=== PATIENT | male | born 1935 | race Caucasian/White ===

== ENCOUNTER 2017-08-19 01:49 | Inpatient (IN) | payer MEDICARE, OTHER ==
[~2017-08-19] VITALS: Ht 190.5 cm; Wt 85.1 kg
[2017-08-19 02:02] VITALS: BP 142/74; PULSE 54; RESP 18; TEMP 98.2; O2SAT 98
--- NOTE | 2017-08-19 02:07 | PD ---
HPI Chief Complaint: Psychiatric Symptoms Time Seen by Provider: 01:58 Travel History International Travel<30 days: No Contact w/Intl Traveler<30days: No Traveled to known affect area: No History of Present Illness HPI 81-year-old white male with a history of Alzheimer's and bladder cancer presents to emergency department under Kahn act by PD. Patient became increasingly agitated and aggressive at home causing his to call PD. The patient is pleasantly confused and cooperative here in the ER. PFSH Past Medical History Narrative Medical Alzheimer's and bladder cancer, hypertension, diabetes Tetanus Vaccination: Unknown ?: Unknown Past Surgical History Surgical History: Unable to Obtain Social History Alcohol Use: No Tobacco Use: No Substance Use: No Allergies-Medications (Allergen,Severity, Reaction): Coded Allergies: No Allergy Information Available (Unverified , 08/19/17) Pt hx of alzheimers Reported Meds & Prescriptions Reported Meds & Active Scripts Active Active Prescriptions or Reported Medications Unobtainable Review of Systems ROS Limitations: Poor Historian Physical Exam Narrative GENERAL: Well-nourished, well-developed patient. The patient is pleasantly confused. He does not know the reason for his evaluation today. He is alert to his person but no place, time or situation. SKIN: Warm and dry. HEAD: Normocephalic and atraumatic. EYES: No scleral icterus. No injection or drainage. ENT: No nasal drainage noted. Mucous membranes pink. Airway patent. NECK: Supple, trachea midline. Moves head freely without obvious discomfort. CARDIOVASCULAR: Regular rate and rhythm without murmurs, gallops, or rubs. RESPIRATORY: Breath sounds equal bilaterally. No accessory muscle use. GASTROINTESTINAL: Abdomen soft, non-tender, nondistended. The patient is wearing a adult depends EXTREMITIES: No cyanosis or edema. BACK: Nontender without obvious deformity. No CVA tenderness. NEURO: Patient is alert and oriented to person only. no sensorimotor deficits. Nonfocal. Normal speech. PSYCH: Pleasantly confused Data Data Last Documented VS Vital Signs Date Time Temp Pulse Resp B/P (MAP) Pulse Ox O2 Delivery O2 Flow Rate FiO2 08/19/17 02:02 98.2 54 18 142/74 (96) 98 Orders Orders Complete Blood Count With Diff (08/19/17 02:04) Comprehensive Metabolic Panel (08/19/17 02:04) Thyroid Stimulating Hormone (08/19/17 02:04) Psych Screen (08/19/17 02:04) Lorazepam Inj (Ativan Inj) (08/19/17 02:15) Drug Screen, Random Urine (08/19/17 02:04) Alcohol (Ethanol) (08/19/17 02:04) Ua Includes Microscopic (08/19/17 02:06) Labs Laboratory Tests Test 08/19/17 02:15 White Blood Count 8.6 TH/MM3 Red Blood Count 4.61 MIL/MM3 Hemoglobin 13.9 GM/DL Hematocrit 40.5 % Mean Corpuscular Volume 87.9 FL Mean Corpuscular Hemoglobin 30.1 PG Mean Corpuscular Hemoglobin Concent 34.3 % Red Cell Distribution Width 13.1 % Platelet Count 229 TH/MM3 Mean Platelet Volume 9.0 FL Neutrophils (%) (Auto) 57.5 % Lymphocytes (%) (Auto) 27.3 % Monocytes (%) (Auto) 11.5 % Eosinophils (%) (Auto) 3.0 % Basophils (%) (Auto) 0.7 % Neutrophils # (Auto) 4.9 TH/MM3 Lymphocytes # (Auto) 2.3 TH/MM3 Monocytes # (Auto) 1.0 TH/MM3 Eosinophils # (Auto) 0.3 TH/MM3 Basophils # (Auto) 0.1 TH/MM3 CBC Comment DIFF FINAL Differential Comment Blood Urea Nitrogen 27 MG/DL Creatinine 0.93 MG/DL Random Glucose 112 MG/DL Total Protein 6.5 GM/DL Albumin 3.5 GM/DL Calcium Level 8.5 MG/DL Alkaline Phosphatase 53 U/L Aspartate Amino Transf (AST/SGOT) 35 U/L Alanine Aminotransferase (ALT/SGPT) 61 U/L Total Bilirubin 0.4 MG/DL Sodium Level 138 MEQ/L Potassium Level 4.3 MEQ/L Chloride Level 107 MEQ/L Carbon Dioxide Level 24.4 MEQ/L Anion Gap 7 MEQ/L Estimat Glomerular Filtration Rate 78 ML/MIN Thyroid Stimulating Hormone 3rd Gen 3.040 uIU/ML Ethyl Alcohol Level LESS THAN 3 MG/DL MDM Medical Decision Making Medical Screen Exam Complete: Yes Emergency Medical Condition: Yes Medical Record Reviewed: Yes Interpretation(s) Laboratory Tests Test 08/19/17 02:15 White Blood Count 8.6 TH/MM3 Red Blood Count 4.61 MIL/MM3 Hemoglobin 13.9 GM/DL Hematocrit 40.5 % Mean Corpuscular Volume 87.9 FL Mean Corpuscular Hemoglobin 30.1 PG Mean Corpuscular Hemoglobin Concent 34.3 % Red Cell Distribution Width 13.1 % Platelet Count 229 TH/MM3 Mean Platelet Volume 9.0 FL Neutrophils (%) (Auto) 57.5 % Lymphocytes (%) (Auto) 27.3 % Monocytes (%) (Auto) 11.5 % Eosinophils (%) (Auto) 3.0 % Basophils (%) (Auto) 0.7 % Neutrophils # (Auto) 4.9 TH/MM3 Lymphocytes # (Auto) 2.3 TH/MM3 Monocytes # (Auto) 1.0 TH/MM3 Eosinophils # (Auto) 0.3 TH/MM3 Basophils # (Auto) 0.1 TH/MM3 CBC Comment DIFF FINAL Differential Comment Blood Urea Nitrogen 27 MG/DL Creatinine 0.93 MG/DL Random Glucose 112 MG/DL Total Protein 6.5 GM/DL Albumin 3.5 GM/DL Calcium Level 8.5 MG/DL Alkaline Phosphatase 53 U/L Aspartate Amino Transf (AST/SGOT) 35 U/L Alanine Aminotransferase (ALT/SGPT) 61 U/L Total Bilirubin 0.4 MG/DL Sodium Level 138 MEQ/L Potassium Level 4.3 MEQ/L Chloride Level 107 MEQ/L Carbon Dioxide Level 24.4 MEQ/L Anion Gap 7 MEQ/L Estimat Glomerular Filtration Rate 78 ML/MIN Thyroid Stimulating Hormone 3rd Gen 3.040 uIU/ML Ethyl Alcohol Level LESS THAN 3 MG/DL Differential Diagnosis MDM: High Differential diagnoses: Schizophrenia, schizoaffective disorder, bipolar, anxiety, depression, adjustment reaction, mood disorder NOS, ODD, depressive disorder NOS, dementia, dementia with agitation, psychosis NOS, substance induced mood disorder, DMDD, Asperger syndrome, infection,electrolyte abnormality, malingering. Narrative Course Mental health screening discussed with the patient. Psychiatric screen ordered. I have spoken with the patient's . She informs me that the patient is also a diabetic. He takes Lantus 36 units at night and he takes a sliding scale of Humalog. He takes anywhere from 5-10 units with meals. Patient also has a history of hypertension. The patient's been medically cleared. The patient is given Ativan 2 mg IM. This is dementia with agitation Diagnosis Primary Impression: dementia with agitation Scripts Unable to Obtain Active Prescriptions or Reported Meds Condition: Stable Kaiden Jimenez Aug 19, 2017 02:07
[2017-08-19] MEDS ORDERED: LORazepam 2 MG/ML VIAL IM ONE (02:15)
[2017-08-19 02:38] LABS: AUTOMATED NEUTROPHIL # 4.9 TH/MM3 (1.8-7.7); BASOPHIL # 0.1 TH/MM3 (0-0.2); BASOPHIL % 0.7 % (0.0-2.0); EOSINOPHIL # 0.3 TH/MM3 (0-0.4); HEMATOCRIT 40.5 % (39.0-51.0); HEMOGLOBIN 13.9 GM/DL (13.0-17.0); LYMPH % 27.3 % (9.0-44.0); LYMPHOCYTE # 2.3 TH/MM3 (1.0-4.8); MEAN CELL VOLUME 87.9 FL (80.0-100.0); MEAN CORPUSCULAR HEMOGLOBIN 30.1 PG (27.0-34.0); MEAN CORPUSCULAR HGB CONC 34.3 % (32.0-36.0); MONO % 11.5 % (0.0-8.0); NEUT % 57.5 % (16.0-70.0); PLATELET COUNT 229 TH/MM3 (150-450); RED BLOOD COUNT 4.61 MIL/MM3 (4.50-5.90); RED CELL DISTRIBUTION WIDTH 13.1 % (11.6-17.2); WHITE BLOOD COUNT 8.6 TH/MM3 (4.0-11.0)
[2017-08-19 02:54] LABS: ALBUMIN 3.5 GM/DL (3.4-5.0); ALT (GPT) 61 U/L (12-78); AST (GOT) 35 U/L (15-37); BICARBONATE 24.4 MEQ/L (21.0-32.0); BLOOD UREA NITROGEN 27 MG/DL (7-18); CALCIUM 8.5 MG/DL (8.5-10.1); CHLORIDE 107 MEQ/L (98-107); CREATININE 0.93 MG/DL (0.60-1.30); GLOMERULAR FILTRATION RATE 78 ML/MIN (>89); GLUCOSE,RANDOM 112 MG/DL (74-106); SODIUM (NA) 138 MEQ/L (136-145)
[2017-08-19 03:04] LABS: ALKALINE PHOSPHATASE 53 U/L (45-117); TOTAL BILIRUBIN ADULT 0.4 MG/DL (0.2-1.0); TOTAL PROTEIN 6.5 GM/DL (6.4-8.2)
[2017-08-19 09:25] VITALS: BP 131/63; PULSE 40; RESP 16; TEMP 98.1; O2SAT 96
[2017-08-19 10:16] LABS: BILIRUBIN, URINE NEG (NEG); BLOOD, URINE NEG (NEG); GLUCOSE,URINE NEG (NEG); KETONE, URINE NEG (NEG); NITRITE,URINE NEG (NEG); URINE COLOR LIGHT-YELLOW (YELLW/STRAW); URINE LEUKOCYTE ESTERASE NEG (NEG)
[2017-08-19] MEDS ORDERED: DONE10TA7 PO (11:53)
[2017-08-19] MEDS ORDERED: NAME10TA PO (11:53)
[2017-08-19] MEDS ORDERED: ASPI81CH6 CHEW (11:53)
[2017-08-19] MEDS ORDERED: LISI40TA PO (11:53)
[2017-08-19] MEDS ORDERED: LOVA40TA PO (11:53)
[2017-08-19] MEDS ORDERED: ZIPR20CA13 PO (11:53)
[2017-08-19] MEDS ORDERED: GABA300C5 PO (11:53)
[2017-08-19] MEDS ORDERED: LANTUS2P SQ (11:55)
[2017-08-19] MEDS ORDERED: HUMALOG SQ (11:55)
[2017-08-19] MEDS ORDERED: ACETAMINOPHEN 325 MG TAB PO PRN (14:00)
[2017-08-19] MEDS ORDERED: ALUMINUM/MAGNESIUM/SIMETH 30 ML CUP PO PRN (14:00)
[2017-08-19] MEDS ORDERED: MAGNESIUM HYDROXIDE SUSP 30 ML CUP PO PRN (14:00)
[2017-08-19] MEDS ORDERED: DEXTROSE 50% IN WATER 50 ML VIAL(D50) IV PUSH PRN (14:45)
[2017-08-19] MEDS ORDERED: GLUCAGON 1 MG/ML VIAL OTHER PRN (14:45)
--- NOTE | 2017-08-19 14:46 | PD.CONS ---
HPI Service [facility] Hospitalists Consult Requested By Psychiatry Reason for Consult Medical management Primary Care Physician Brian Motley MD Diagnoses: History of Present Illness Mr. Zaidi is a 81-year-old male with a history of Alzheimer's dementia and bladder cancer who presents to the emergency department under Kahn act due to agitation and aggressive behavior. Hospitalist service was consulted for medical management. At the time of this interview in the emergency department, patient denies any chest pain, shortness of breath, fever or chills. He denies any changes in bowel or bladder habits. He denies any homicidal or suicidal ideations. Review of Systems ROS Limitations: Clinical Condition Except as stated in HPI: all other systems reviewed are Neg Past Family Social History Allergies: Coded Allergies: No Known Allergies (Verified Allergy, Unknown, 08/19/17) Past Medical History Also, dementia Hypertension Diabetes mellitus Bladder cancer Past Surgical History Patient denies having any prior surgeries. Reported Medications Donepezil 10 mg by mouth daily Lovastatin 40 mg by mouth daily Lisinopril 40 mg by mouth daily Aspirin 81 mg by mouth daily Gabapentin 300 mg by mouth daily Ziprasidone 20 mg daily Memantine 10 mg by mouth daily Lantus 36 units daily Lispro 2-12 units before meals daily at bedtime. Family History Patient denies any family history of Parkinson's, Alzheimer's, heart disease. Social History Patient denies using tobacco, alcohol, illicit drugs. Physical Exam Vital Signs Vital Signs Date Time Temp Pulse Resp B/P (MAP) Pulse Ox O2 Delivery O2 Flow Rate FiO2 08/19/17 09:25 98.1 40 16 131/63 (85) 96 Room Air 08/19/17 02:02 98.2 54 18 142/74 (96) 98 Physical Exam GENERAL: This is a well-nourished, well-developed patient, in no apparent distress. Flat affect. SKIN: No rashes, ecchymoses or lesions. Warm and dry. HEAD: Atraumatic. Normocephalic. No temporal or scalp tenderness. EYES: Pupils equal round and reactive. No injection or drainage. ENT: Nose without bleeding, purulent drainage or septal hematoma. Airway patent. NECK: Trachea midline. No lymphadenopathy. Supple, nontender, no meningeal signs. CARDIOVASCULAR: Regular rate, irregular rhythm without murmurs, gallops, or rubs. No JVD. RESPIRATORY: Clear to auscultation. Breath sounds equal bilaterally. No wheezes , rales, or rhonchi. GASTROINTESTINAL: Abdomen soft, non-tender, nondistended. No guarding. MUSCULOSKELETAL: Extremities without clubbing, cyanosis, or edema. NEUROLOGICAL: Awake and alert. Cranial nerves II through XII intact. No focal neurological deficits. Normal speech. Laboratory Laboratory Tests Test 08/19/17 02:15 08/19/17 09:55 White Blood Count 8.6 Red Blood Count 4.61 Hemoglobin 13.9 Hematocrit 40.5 Mean Corpuscular Volume 87.9 Mean Corpuscular Hemoglobin 30.1 Mean Corpuscular Hemoglobin Concent 34.3 Red Cell Distribution Width 13.1 Platelet Count 229 Mean Platelet Volume 9.0 Neutrophils (%) (Auto) 57.5 Lymphocytes (%) (Auto) 27.3 Monocytes (%) (Auto) 11.5 Eosinophils (%) (Auto) 3.0 Basophils (%) (Auto) 0.7 Neutrophils # (Auto) 4.9 Lymphocytes # (Auto) 2.3 Monocytes # (Auto) 1.0 Eosinophils # (Auto) 0.3 Basophils # (Auto) 0.1 CBC Comment DIFF FINAL Differential Comment Blood Urea Nitrogen 27 Creatinine 0.93 Random Glucose 112 Total Protein 6.5 Albumin 3.5 Calcium Level 8.5 Alkaline Phosphatase 53 Aspartate Amino Transf (AST/SGOT) 35 Alanine Aminotransferase (ALT/SGPT) 61 Total Bilirubin 0.4 Sodium Level 138 Potassium Level 4.3 Chloride Level 107 Carbon Dioxide Level 24.4 Anion Gap 7 Estimat Glomerular Filtration Rate 78 Thyroid Stimulating Hormone 3rd Gen 3.040 Ethyl Alcohol Level LESS THAN 3 Urine Color LIGHT-YELLOW Urine Turbidity CLEAR Urine pH 5.0 Urine Specific [place] 1.011 Urine Protein NEG Urine Glucose (UA) NEG Urine Ketones NEG Urine Occult Blood NEG Urine Nitrite NEG Urine Bilirubin NEG Urine Urobilinogen LESS THAN 2.0 Urine Leukocyte Esterase NEG Urine RBC 1 Urine WBC 2 Urine Opiates Screen NEG Urine Barbiturates Screen NEG Urine Amphetamines Screen NEG Urine Benzodiazepines Screen NEG Urine Cocaine Screen NEG Urine Cannabinoids Screen NEG Result Diagram: 08/19/1721408/19/17214 Assessment and Plan Problem List: (1) Hyperlipidemia ICD Code: E78.5 - Hyperlipidemia, unspecified (2) Diabetes mellitus ICD Code: E11.9 - Type 2 diabetes mellitus without complications (3) Hypertension ICD Code: I10 - Essential (primary) hypertension (4) Alzheimer's dementia ICD Code: G30.9 - Alzheimer's disease, unspecified; F02.80 - Dementia in other diseases classified elsewhere without behavioral disturbance Assessment and Plan Mr. Zaidi is a pleasant 81-year-old male with a history of Alzheimer' s mentioned, diabetes mellitus, hypertension who presents to the emergency department under Kahn act due to agitation and aggressive behavior. Hospitalist service was consulted for medical management. - Alzheimer's dementia - Continue donepezil 10 mg by mouth daily, Neurontin 10 mg by mouth daily - Aggressive behavior - management per psychiatry - Diabetes mellitus - Diabetic nephropathy - Continue gabapentin 300 mg by mouth daily. - We'll reduce long-acting insulin to 10 units daily at bedtime. Titrate up as needed. - Add sliding scale insulin and pre-meal insulin with aspart. Titrate as needed. - Hypertension - Hyperlipidemia - Continue lisinopril 40 mg by mouth daily. - Continue statin. - Irregular heart rhythm - will obtain EKG. No history of Atrial fibrillation. Full code. Ambulation Emperatriz Bee DO Aug 19, 2017 2:46 pm
[2017-08-19] MEDS ORDERED: NICOTINE 21 MG/24 HR PATCH T-DERMAL PRN (15:00)
[2017-08-19 16:42] VITALS: BP 138/92; PULSE 42; RESP 18; TEMP 98.6; O2SAT 98
[2017-08-19] MEDS: INSULIN ASPART SUPPLEMENTAL SCALE SQ SCH ×2 (16:43→20:20)
[2017-08-19] MEDS: INSULIN ASPART 1,000 UNITS/10 ML VIAL SQ SCH (16:43)
[2017-08-19] MEDS: INSULIN DETEMIR 100 UNITS/ML VIAL SQ SCH (21:13)
[2017-08-20 06:02] VITALS: BP 109/58; PULSE 72; RESP 18; TEMP 97.5
[2017-08-20] MEDS: INSULIN ASPART 1,000 UNITS/10 ML VIAL SQ SCH ×3 (08:00→17:00)
[2017-08-20] MEDS: INSULIN ASPART SUPPLEMENTAL SCALE SQ SCH ×4 (08:00→20:56)
[2017-08-20] MEDS: PRAVASTATIN SOD 40 MG TAB PO SCH (08:54)
[2017-08-20] MEDS: GABAPENTIN 300 MG CAP PO SCH (08:54)
[2017-08-20] MEDS: ASPIRIN 81 MG CHEW TAB CHEW SCH (08:54)
[2017-08-20] MEDS: DONEPEZIL HCL 5 MG TAB PO SCH (08:56)
[2017-08-20] MEDS: MEMANTINE HCL 10 MG TAB PO SCH (08:56)
[2017-08-20] MEDS: LISINOPRIL 20 MG TAB PO SCH (09:00)
[2017-08-20] MEDS ORDERED: INSULIN DETEMIR 100 UNITS/ML VIAL SQ SCH ×2 (09:00)
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
[2017-08-20 13:11] LABS: BICARBONATE 31.3 MEQ/L (21.0-32.0); BLOOD UREA NITROGEN 21 MG/DL (7-18); CHLORIDE 104 MEQ/L (98-107); GLOMERULAR FILTRATION RATE 72 ML/MIN (>89); GLUCOSE,RANDOM 103 MG/DL (74-106); SODIUM (NA) 141 MEQ/L (136-145)
[2017-08-20 13:12] LABS: CHOLESTEROL 119 MG/DL (120-200)
--- NOTE | 2017-08-20 13:28 | EKG ---
Date Performed: 08/19/2017 Time Performed: 15:35:45 PTAGE: 81 years EKG: Sinus rhythm WITH FREQUENT VENTRICULAR PREMATURE COMPLEXES IN A BIGEMINAL PATTERN NONSPECIFIC ST & T-WAVE ABNORMA LITY ABNORMAL RHYTHM ECG NO PREVIOUS TRACING DOCTOR: Alexis Gonzalez Interpretating Date/Time 08/20/2017 13:24:59
[2017-08-20 13:38] LABS: CHOLESTEROL/ HDL RATIO 2.24 RATIO; HDL CHOLESTEROL 53.1 MG/DL (40.0-60.0); LDL CHOLESTEROL 52 MG/DL (0-99); TRIGLYCERIDES 72 MG/DL (42-150)
--- NOTE | 2017-08-20 19:02 | MB ---
cc: DEBRA MADERA M.D. DATE OF CONSULTATION: 08/20/2017. REASON FOR CONSULTATION: HISTORY OF PRESENT ILLNESS: Michele is a very pleasant 81-year-old gentleman currently in the psychiatric unit. He presented to the emergency room on 08/19/17 due to a Kahn Act from the police department secondary to agitation and aggressiveness at the home. His called the police department. He was noted to be confused in the emergency room but cooperative. Currently he is eating dinner. He denies any chest pain, fevers, chills, cough, GI or bleeding, paroxysmal nocturnal dyspnea, orthopnea, syncope or dizziness. PAST MEDICAL HISTORY: 1. Bladder cancer. 2. Alzheimer's disease. 3. Hypertension. 4. Diabetes. ALLERGIES: NONE. SOCIAL HISTORY: Denies tobacco or alcohol use. MEDICATIONS IN THE HOSPITAL: 1. Aspirin 81 milligrams a day. 2. Gabapentin 100 daily. 3. Pravachol 40 milligrams daily. 4. Lisinopril 40 milligrams daily. 5. Aricept 10 milligrams daily. 6. Namenda 10 milligrams daily. 7. Insulin 10 units at bedtime. PHYSICAL EXAMINATION: VITAL SIGNS: Blood pressure 109/58, pulse 72, respiratory rate 18, temperature 97.5. GENERAL: He is alert and oriented times three and in no acute distress. NECK: The neck is supple. No jugular venous distention. No bruits. CARDIOVASCULAR EXAM: S1 and S2. No murmurs, rubs or gallops. LUNGS: Clear to auscultation bilaterally. ABDOMEN: The abdomen is soft, nontender and nondistended with positive bowel sounds. EXTREMITIES: No lower extremity edema. LABORATORY DATA: White count 8.6, hemoglobin 13.9, hematocrit 40.5, platelet count 229,000. Sodium 141, potassium 4.0, chloride 104, bicarbonate 31.3, BUN 21, creatinine 1.0. AST 35, ALT 61. TSH is 3.040. EKGS: EKG shows normal sinus rhythm at 75 beats per minute with ventricular bigeminy. There are corrected Q-T intervals 374 milliseconds. DIAGNOSES: He has the following diagnoses: 1. Ventricular bigeminy. 2. PVCs. 3. Alzheimer's disease. DISCUSSION: At this point in time, will get a 2-D echocardiogram. I will start the patient on Coreg 3.25 twice a day. Check a magnesium level. He is completely asymptomatic. Agree with aspirin and Pravachol and lisinopril. The beta-soco will have to be held due to bradycardia. Will check a 2-D echocardiogram. MD AMANDA Agudelo/JONNIE /6:22 PM /6:50 PM
[2017-08-20 20:00] VITALS: BP 120/64; PULSE 80; RESP 16; TEMP 98; O2SAT 98
[2017-08-20] MEDS: INSULIN DETEMIR 100 UNITS/ML VIAL SQ SCH (20:56)
[2017-08-21 06:08] VITALS: BP 123/58; PULSE 74; RESP 16; TEMP 98.4; O2SAT 97
[2017-08-21] MEDS: INSULIN ASPART 1,000 UNITS/10 ML VIAL SQ SCH ×3 (08:00→17:00)
[2017-08-21] MEDS: INSULIN ASPART SUPPLEMENTAL SCALE SQ SCH ×4 (08:00→20:17)
[2017-08-21] MEDS: ASPIRIN 81 MG CHEW TAB CHEW SCH (08:27)
[2017-08-21 08:42] LABS: HEMOGLOBIN A1C 7.5 % (4.3-6.0)
[2017-08-21] MEDS: DONEPEZIL HCL 5 MG TAB PO SCH (09:00)
[2017-08-21] MEDS: LISINOPRIL 20 MG TAB PO SCH (09:00)
[2017-08-21] MEDS: CHOLECALCIFEROL (VIT D3) 1000 UNIT TAB PO SCH (09:00)
[2017-08-21] MEDS: PRAVASTATIN SOD 40 MG TAB PO SCH (09:00)
[2017-08-21] MEDS: GABAPENTIN 300 MG CAP PO SCH (09:00)
[2017-08-21] MEDS: MEMANTINE HCL 10 MG TAB PO SCH (09:00)
--- NOTE | 2017-08-21 11:07 | PD.CARD.PN ---
Subjective Subjective Remarks alert in nad, assymptomatic Objective Medications Current Medications Medications (Trade) Dose Ordered Sig/Sujit Route Start Time Stop Time Status Last Admin (Aspirin Chew) 81 mg DAILY CHEW 08/20/17 09:00 08/21/17 08:27 (Neurontin) 300 mg DAILY PO 08/20/17 09:00 08/20/17 08:54 (Pravachol) 40 mg DAILY PO 08/20/17 09:00 08/20/17 08:54 (Prinivil) 40 mg DAILY PO 08/20/17 09:00 (Tylenol) 650 mg Q4H PRN PO 08/19/17 14:00 (Milk Of Magnesia Liq) 30 ml DAILY PRN PO 08/19/17 14:00 (Mag-Al Plus Susp Liq) 30 ml Q6H PRN PO 08/19/17 14:00 (Habitrol 21 Mg Patch.24 Hr) 1 patch DAILY PRN T-DERMAL 08/19/17 15:00 (D50w (Vial) Inj) 50 ml UNSCH PRN IV PUSH 08/19/17 14:45 (Glucagon Inj) 1 mg UNSCH PRN OTHER 08/19/17 14:45 (NovoLOG SUPPLEMENTAL SCALE) 1 ACHS SLIDING SCALE SQ 08/19/17 17:00 08/20/17 20:56 (NovoLOG INJ) 4 units TIDAC SQ 08/19/17 17:00 08/20/17 11:41 (Aricept) 10 mg DAILY PO 08/20/17 09:00 08/20/17 08:56 (Namenda) 10 mg DAILY PO 08/20/17 09:00 08/20/17 08:56 (Levemir Inj) 10 units HS SQ 08/19/17 21:00 08/20/17 20:56 (Vitamin D3) 2,000 units DAILY PO 08/21/17 09:00 Vital Signs / I&O Vital Signs Date Time Temp Pulse Resp B/P (MAP) Pulse Ox O2 Delivery O2 Flow Rate FiO2 08/21/17 06:08 98.4 74 16 123/58 (79) 97 08/20/17 20:00 98.0 80 16 120/64 (82) 98 I/O 08/20/17 08/20/17 08/20/17 08/21/17 08/21/17 08/21/17 06:59 14:59 22:59 06:59 14:59 22:59 Intake Total 760 ml 0 ml 360 ml Balance 760 ml 0 ml 360 ml Intake Oral 760 ml 0 ml 360 ml # Voids 1 2 1 # Bowel Movements 1 Physical Exam GENERAL: SKIN: Warm and dry. HEAD: Normocephalic. EYES: No scleral icterus. No injection or drainage. NECK: Supple, trachea midline. No JVD or lymphadenopathy. CARDIOVASCULAR: Regular rate and rhythm without murmurs, gallops, or rubs. RESPIRATORY: Breath sounds equal bilaterally. No accessory muscle use. GASTROINTESTINAL: Abdomen soft, non-tender, nondistended. MUSCULOSKELETAL: No cyanosis, or edema. BACK: Nontender without obvious deformity. No CVA tenderness. Laboratory Laboratory Tests Test 08/20/17 12:09 Blood Urea Nitrogen 21 MG/DL Creatinine 1.00 MG/DL Random Glucose 103 MG/DL Calcium Level 9.0 MG/DL Sodium Level 141 MEQ/L Potassium Level 4.0 MEQ/L Chloride Level 104 MEQ/L Carbon Dioxide Level 31.3 MEQ/L Anion Gap 6 MEQ/L Estimat Glomerular Filtration Rate 72 ML/MIN Hemoglobin A1c 7.5 % Triglycerides Level 72 MG/DL Cholesterol Level 119 MG/DL LDL Cholesterol 52 MG/DL HDL Cholesterol 53.1 MG/DL Cholesterol/HDL Ratio 2.24 RATIO Vitamin B12 Level 722 PG/ML 25-Hydroxy Vitamin D Total 20.4 ng/ML Thyroid Stimulating Hormone 3rd Gen 1.840 uIU/ML Assessment and Plan Problem List: (1) Arrhythmia ICD Codes: I49.9 - Cardiac arrhythmia, unspecified (2) DEMENTIA IN OTH DISEASES CLASSD ELSWHR W BEHAVIORAL DISTURB ICD Codes: F02.81 - DEMENTIA IN OTH DISEASES CLASSD ELSWHR W BEHAVIORAL DISTURB (3) Alzheimer's dementia ICD Codes: G30.9 - Alzheimer's disease, unspecified; F02.80 - Dementia in other diseases classified elsewhere without behavioral disturbance (4) Diabetes mellitus ICD Codes: E11.9 - Type 2 diabetes mellitus without complications Assessment and Plan 1.) Arrythmia - assymptomatic, f/u 2d echo, beta soco held due to bradycardia Alexis Gonzalez MD Aug 21, 2017 11:06
--- NOTE | 2017-08-21 11:24 | HHI.PYPN ---
Subjective Chief Complaint: . Confused demented and assaultive towards Remarks This is a request for second opinion. Admission note was reviewed and case was discussed with nursing. Patient is alert and oriented 1. He is hypoverbal, flat, could be responding to internal stimuli. Insight is quite poor. He continues to be followed by cardiology who ordered an echo. Where waiting for medical clearance to start medication Mental Status Examination Appearance: Appropriate Consciousness: Alert Orientation: Person Motor Activity: Other (somewhat shuffling) Speech: Unremarkable, Hesitant, Other (markedly disorganized) Language: Adequate Fund of Knowledge: Poor Attention and Concentration: Easily Distracted Memory: Impaired Mood: Other (restrictive) Affect: Other (decrease range of motion intensity) Thought Process & Associations: Loose associations, Disorganized Thought Content: Other (disorganized) Hallucination Type: None Delusion Type: None Suicidal Ideation: No Suicidal Plan: No Suicidal Intention: No Homicidal Ideation: No Homicidal Plan: No Homicidal Intention: No Insight: Poor Judgment: Poor Results Labs Test 08/20/17 12:09 Blood Urea Nitrogen 21 MG/DL Creatinine 1.00 MG/DL Random Glucose 103 MG/DL Calcium Level 9.0 MG/DL Sodium Level 141 MEQ/L Potassium Level 4.0 MEQ/L Chloride Level 104 MEQ/L Carbon Dioxide Level 31.3 MEQ/L Anion Gap 6 MEQ/L Estimat Glomerular Filtration Rate 72 ML/MIN Hemoglobin A1c 7.5 % Triglycerides Level 72 MG/DL Cholesterol Level 119 MG/DL LDL Cholesterol 52 MG/DL HDL Cholesterol 53.1 MG/DL Cholesterol/HDL Ratio 2.24 RATIO Vitamin B12 Level 722 PG/ML 25-Hydroxy Vitamin D Total 20.4 ng/ML Thyroid Stimulating Hormone 3rd Gen 1.840 uIU/ML Vitals/IOs Vital Signs Date Time Temp Pulse Resp B/P (MAP) Pulse Ox O2 Delivery O2 Flow Rate FiO2 08/21/17 06:08 98.4 74 16 123/58 (79) 97 08/19/17 09:25 Room Air Intake and Output 08/21/17 08/21/17 08/22/17 08:00 16:00 00:00 Intake Total 0 ml 360 ml Balance 0 ml 360 ml Assessment & Plan Problem List: (1) ALZHEIMER'S DISEASE WITH LATE ONSET ICD Codes: G30.1 - ALZHEIMER'S DISEASE WITH LATE ONSET (2) DEMENTIA IN OTH DISEASES CLASSD ELSWHR W BEHAVIORAL DISTURB ICD Codes: F02.81 - DEMENTIA IN OTH DISEASES CLASSD ELSWHR W BEHAVIORAL DISTURB Assessment & Plan I agree with the first opinion to continue petition. Criteria include acute confusion and dementia Justification for Cont. Inpt. Patient will decompensate in a less restrictive setting Request HC Surrog/Guard Advoc?: Yes Yang Baker DO Aug 21, 2017 11:24
--- NOTE | 2017-08-21 12:17 | HHI.PR ---
Subjective Remarks Patient with bigeminy. Patient seen and examined. Patient denies any cardiac complaints. States he feels well. Discussed with GRAYSON Sanches, no acute issues noted. Objective Vitals Vital Signs Date Time Temp Pulse Resp B/P (MAP) Pulse Ox O2 Delivery O2 Flow Rate FiO2 08/21/17 06:08 98.4 74 16 123/58 (79) 97 08/20/17 20:00 98.0 80 16 120/64 (82) 98 I/O 08/20/17 08/20/17 08/20/17 08/21/17 08/21/17 08/21/17 07:00 15:00 23:00 07:00 15:00 23:00 Intake Total 760 ml 0 ml 360 ml Balance 760 ml 0 ml 360 ml Intake Oral 760 ml 0 ml 360 ml # Voids 1 2 1 # Bowel Movements 1 Result Diagram: 08/19/17 0215 08/20/17 1209 Objective Remarks GENERAL: This is a well-nourished, well-developed elderly male patient , in no apparent distress. Awake and alert. Witnessed ambulating in the unit. Flat affect. SKIN: Warm and dry. (+)small wound on back of left leg, appears to be healing well. HEAD: Atraumatic. Normocephalic. EYES: Pupils equal round and reactive. No injection or drainage. ENT: Nose without bleeding, purulent drainage or septal hematoma. Airway patent. MMM. NECK: Trachea midline. CARDIOVASCULAR: Regular rate, irregular rhythm without murmurs, gallops, or rubs. No JVD. RESPIRATORY: Clear to auscultation. Breath sounds equal bilaterally. No wheezes , rales, or rhonchi. GASTROINTESTINAL: Abdomen soft, non-tender, nondistended. No guarding. MUSCULOSKELETAL: Extremities without clubbing, cyanosis, or edema. NEUROLOGICAL: Awake and alert. Able to move all extremities spontaneously. Motor and sensory function grossly intact. No focal neurological deficits. Normal speech. Medications and IVs Current Medications Medications (Trade) Dose Ordered Sig/Sujit Route Start Time Stop Time Status Last Admin (Aspirin Chew) 81 mg DAILY CHEW 08/20/17 09:00 08/21/17 08:27 (Neurontin) 300 mg DAILY PO 08/20/17 09:00 08/20/17 08:54 (Pravachol) 40 mg DAILY PO 08/20/17 09:00 08/20/17 08:54 (Prinivil) 40 mg DAILY PO 08/20/17 09:00 (Tylenol) 650 mg Q4H PRN PO 08/19/17 14:00 (Milk Of Magnesia Liq) 30 ml DAILY PRN PO 08/19/17 14:00 (Mag-Al Plus Susp Liq) 30 ml Q6H PRN PO 08/19/17 14:00 (Habitrol 21 Mg Patch.24 Hr) 1 patch DAILY PRN T-DERMAL 08/19/17 15:00 (D50w (Vial) Inj) 50 ml UNSCH PRN IV PUSH 08/19/17 14:45 (Glucagon Inj) 1 mg UNSCH PRN OTHER 08/19/17 14:45 (NovoLOG SUPPLEMENTAL SCALE) 1 ACHS SLIDING SCALE SQ 08/19/17 17:00 08/20/17 20:56 (NovoLOG INJ) 4 units TIDAC SQ 08/19/17 17:00 08/20/17 11:41 (Aricept) 10 mg DAILY PO 08/20/17 09:00 08/20/17 08:56 (Namenda) 10 mg DAILY PO 08/20/17 09:00 08/20/17 08:56 (Levemir Inj) 10 units HS SQ 08/19/17 21:00 08/20/17 20:56 (Vitamin D3) 2,000 units DAILY PO 08/21/17 09:00 A/P Problem List: (1) Hyperlipidemia ICD Code: E78.5 - Hyperlipidemia, unspecified (2) Diabetes mellitus ICD Code: E11.9 - Type 2 diabetes mellitus without complications (3) Hypertension ICD Code: I10 - Essential (primary) hypertension (4) Alzheimer's dementia ICD Code: G30.9 - Alzheimer's disease, unspecified; F02.80 - Dementia in other diseases classified elsewhere without behavioral disturbance Assessment and Plan Mr. Zaidi is a pleasant 81-year-old male with a history of Alzheimer' s mentioned, diabetes mellitus, hypertension who presents to the emergency department under Kahn act due to agitation and aggressive behavior. Hospitalist service was consulted for medical management. - Alzheimer's dementia with behavioral disturbance -Management per psychiatric team -Continue donepezil 10 mg by mouth daily, Namenda 10 mg daily - Diabetes mellitus - Diabetic nephropathy - A1c 7.5 -Continue gabapentin 300 mg by mouth daily. -Long-acting insulin reduced to 10 units daily at bedtime. Titrate up as needed. Blood sugars with good overall control at present. -Continue sliding scale insulin and pre-meal insulin with aspart. Titrate as needed. - Hypertension - Hyperlipidemia -Blood pressures running low, decreased dose of lisinopril to 20 mg daily with parameters. -Continue statin. -Continue to monitor BP and adjust treatment accordingly - Irregular heart rhythm No history of Atrial fibrillation -Bigeminy and PVCs on EKG. Cardiology consulted. -Obtain magnesium level -Cardiology following, appreciate assistance. 2D echo ordered. Consideration for beta-soco therapy but held secondary to bradycardia. - Vitamin D deficiency -Vitamin D level 20.4 -Start on p.o. vitamin D supplementation daily -Patient will need to follow-up with PCP as outpatient for repeat vitamin D level in 3 months -DVT prophylaxis -Patient is ambulatory Josey Man Aug 21, 2017 12:17
[2017-08-21 18:21] VITALS: BP 106/54; PULSE 74; RESP 16; TEMP 98; O2SAT 96
[2017-08-21] MEDS: INSULIN DETEMIR 100 UNITS/ML VIAL SQ SCH (20:17)
[2017-08-22 06:45] VITALS: BP 106/56; PULSE 66; RESP 16; TEMP 97.6; O2SAT 98
[2017-08-22] MEDS: INSULIN ASPART SUPPLEMENTAL SCALE SQ SCH ×4 (08:00→22:34)
[2017-08-22] MEDS: DONEPEZIL HCL 5 MG TAB PO SCH (09:00)
[2017-08-22] MEDS: MEMANTINE HCL 10 MG TAB PO SCH ×2 (09:00→09:24)
[2017-08-22] MEDS: INSULIN ASPART 1,000 UNITS/10 ML VIAL SQ SCH ×3 (09:23→17:03)
[2017-08-22] MEDS: ASPIRIN 81 MG CHEW TAB CHEW SCH (09:24)
[2017-08-22] MEDS: LISINOPRIL 20 MG TAB PO SCH (09:24)
[2017-08-22] MEDS: CHOLECALCIFEROL (VIT D3) 1000 UNIT TAB PO SCH (09:24)
[2017-08-22] MEDS: PRAVASTATIN SOD 40 MG TAB PO SCH (09:24)
[2017-08-22] MEDS: GABAPENTIN 300 MG CAP PO SCH (09:25)
--- NOTE | 2017-08-22 12:10 | HHI.PYPN ---
Subjective Chief Complaint: . Confused demented and assaultive towards Remarks Patient seen in his room nurse Silvino. Patient laying calmly in bed chart review, patient discussed with nurse. Patient compliant medications. Continues diffusely confused and to place time and situation. For now continue treatment Review of Systems Except as stated in HPI: all other systems reviewed are Neg Mental Status Examination Appearance: Appropriate Consciousness: Alert Orientation: Person Motor Activity: Other (somewhat shuffling) Speech: Unremarkable, Hesitant, Other (markedly disorganized) Language: Adequate Fund of Knowledge: Poor Attention and Concentration: Easily Distracted Memory: Impaired Mood: Other (restrictive) Affect: Other (decrease range of motion intensity) Thought Process & Associations: Loose associations, Disorganized Thought Content: Other (disorganized) Hallucination Type: None Delusion Type: None Suicidal Ideation: No Suicidal Plan: No Suicidal Intention: No Homicidal Ideation: No Homicidal Plan: No Homicidal Intention: No Insight: Poor Judgment: Poor Results Labs Test 08/22/17 07:00 Magnesium Level 2.2 MG/DL Vitals/IOs Vital Signs Date Time Temp Pulse Resp B/P (MAP) Pulse Ox O2 Delivery O2 Flow Rate FiO2 08/22/17 06:45 97.6 66 16 106/56 (73) 98 08/19/17 09:25 Room Air Intake and Output 08/22/17 08/22/17 08/23/17 08:00 16:00 00:00 Intake Total 240 ml Balance 240 ml Assessment & Plan Problem List: (1) ALZHEIMER'S DISEASE WITH LATE ONSET ICD Codes: G30.1 - ALZHEIMER'S DISEASE WITH LATE ONSET (2) DEMENTIA IN OTH DISEASES CLASSD ELSWHR W BEHAVIORAL DISTURB ICD Codes: F02.81 - DEMENTIA IN OTH DISEASES CLASSD ELSWHR W BEHAVIORAL DISTURB Assessment & Plan Estimated LOS: days patient continues confused and demented, though no behavior problem, compliant medications. Justification for Cont. Inpt. At this time patient will decompensate in place to the lower level of care Discharge Planning To be determined Request HC Surrog/Guard Advoc?: Yes Tino Jean-Baptiste MD Aug 22, 2017 12:10
--- NOTE | 2017-08-22 16:07 | PD.CARD.PN ---
Subjective Subjective Remarks alert in nad, assymptomatic Objective Medications Current Medications Medications (Trade) Dose Ordered Sig/Sujit Route Start Time Stop Time Status Last Admin (Aspirin Chew) 81 mg DAILY CHEW 08/20/17 09:00 08/22/17 09:24 (Neurontin) 300 mg DAILY PO 08/20/17 09:00 08/22/17 09:25 (Pravachol) 40 mg DAILY PO 08/20/17 09:00 08/22/17 09:24 (Tylenol) 650 mg Q4H PRN PO 08/19/17 14:00 (Milk Of Magnesia Liq) 30 ml DAILY PRN PO 08/19/17 14:00 (Mag-Al Plus Susp Liq) 30 ml Q6H PRN PO 08/19/17 14:00 (Habitrol 21 Mg Patch.24 Hr) 1 patch DAILY PRN T-DERMAL 08/19/17 15:00 (D50w (Vial) Inj) 50 ml UNSCH PRN IV PUSH 08/19/17 14:45 (Glucagon Inj) 1 mg UNSCH PRN OTHER 08/19/17 14:45 (NovoLOG SUPPLEMENTAL SCALE) 1 ACHS SLIDING SCALE SQ 08/19/17 17:00 08/22/17 11:56 (NovoLOG INJ) 4 units TIDAC SQ 08/19/17 17:00 08/22/17 11:56 (Aricept) 10 mg DAILY PO 08/20/17 09:00 08/21/17 09:00 (Namenda) 10 mg DAILY PO 08/20/17 09:00 08/21/17 09:00 (Levemir Inj) 10 units HS SQ 08/19/17 21:00 08/20/17 20:56 (Vitamin D3) 2,000 units DAILY PO 08/21/17 09:00 08/22/17 09:24 (Prinivil) 20 mg DAILY PO 08/22/17 09:00 08/22/17 09:24 Vital Signs / I&O Vital Signs Date Time Temp Pulse Resp B/P (MAP) Pulse Ox O2 Delivery O2 Flow Rate FiO2 08/22/17 06:45 97.6 66 16 106/56 (73) 98 08/21/17 18:21 98.0 74 16 106/54 (71) 96 I/O 2/18/18 208/21/17 08/22/17 08/22/17 08/22/17 07:00 15:00 23:00 07:00 15:00 23:00 Intake Total 0 ml 720 ml 0 ml 820 ml Balance 0 ml 720 ml 0 ml 820 ml Intake Oral 0 ml 720 ml 0 ml 820 ml # Voids 1 3 4 2 Physical Exam GENERAL: SKIN: Warm and dry. HEAD: Normocephalic. EYES: No scleral icterus. No injection or drainage. NECK: Supple, trachea midline. No JVD or lymphadenopathy. CARDIOVASCULAR: Regular rate and rhythm without murmurs, gallops, or rubs. RESPIRATORY: Breath sounds equal bilaterally. No accessory muscle use. GASTROINTESTINAL: Abdomen soft, non-tender, nondistended. MUSCULOSKELETAL: No cyanosis, or edema. BACK: Nontender without obvious deformity. No CVA tenderness. Laboratory Laboratory Tests Test 08/22/17 07:00 Magnesium Level 2.2 MG/DL Assessment and Plan Problem List: (1) Arrhythmia ICD Codes: I49.9 - Cardiac arrhythmia, unspecified (2) DEMENTIA IN OTH DISEASES CLASSD ELSWHR W BEHAVIORAL DISTURB ICD Codes: F02.81 - DEMENTIA IN OTH DISEASES CLASSD ELSWHR W BEHAVIORAL DISTURB (3) Alzheimer's dementia ICD Codes: G30.9 - Alzheimer's disease, unspecified; F02.80 - Dementia in other diseases classified elsewhere without behavioral disturbance (4) Diabetes mellitus ICD Codes: E11.9 - Type 2 diabetes mellitus without complications Assessment and Plan 1.) Arrythmia - assymptomatic, f/u 2d echo, beta soco held due to bradycardia ; echo to do echo 08/23/17 Alexis Gonzalez MD Aug 22, 2017 16:07
[2017-08-22 18:13] VITALS: BP 117/61; PULSE 41; RESP 16; TEMP 98.9; O2SAT 98
[2017-08-22] MEDS: INSULIN DETEMIR 100 UNITS/ML VIAL SQ SCH (22:34)
[2017-08-23] MEDS: INSULIN ASPART SUPPLEMENTAL SCALE SQ SCH ×4 (08:00→21:11)
[2017-08-23] MEDS: INSULIN ASPART 1,000 UNITS/10 ML VIAL SQ SCH ×3 (08:32→17:02)
[2017-08-23] MEDS: DONEPEZIL HCL 5 MG TAB PO SCH (09:00)
[2017-08-23] MEDS: CHOLECALCIFEROL (VIT D3) 1000 UNIT TAB PO SCH (09:52)
[2017-08-23] MEDS: ASPIRIN 81 MG CHEW TAB CHEW SCH (09:52)
[2017-08-23] MEDS: GABAPENTIN 300 MG CAP PO SCH (09:53)
[2017-08-23] MEDS: PRAVASTATIN SOD 40 MG TAB PO SCH (09:53)
[2017-08-23] MEDS: MEMANTINE HCL 10 MG TAB PO SCH (09:53)
[2017-08-23] MEDS: LISINOPRIL 20 MG TAB PO SCH (09:53)
--- NOTE | 2017-08-23 12:48 | HHI.PYPN ---
Subjective Chief Complaint: . Confused demented and assaultive towards Remarks Patient seen in day room with nurse Dubois, chart review, patient discussed with nurse, patient calm pleasant cooperative, confused pleasantly confused, did not remember me from yesterday. No behavioral problems noted Review of Systems Except as stated in HPI: all other systems reviewed are Neg Mental Status Examination Appearance: Appropriate Consciousness: Alert Orientation: Person Motor Activity: Other (somewhat shuffling) Speech: Unremarkable, Hesitant, Other (markedly disorganized) Language: Adequate Fund of Knowledge: Poor Attention and Concentration: Easily Distracted Memory: Impaired Mood: Other (restrictive) Affect: Other (decrease range of motion intensity) Thought Process & Associations: Loose associations, Disorganized Thought Content: Other (disorganized) Hallucination Type: None Delusion Type: None Suicidal Ideation: No Suicidal Plan: No Suicidal Intention: No Homicidal Ideation: No Homicidal Plan: No Homicidal Intention: No Insight: Poor Judgment: Poor Results Vitals/IOs Vital Signs Date Time Temp Pulse Resp B/P (MAP) Pulse Ox O2 Delivery O2 Flow Rate FiO2 08/22/17 18:13 98.9 41 16 117/61 (79) 98 08/19/17 09:25 Room Air Intake and Output 08/23/17 08/23/17 08/24/17 08:00 16:00 00:00 Intake Total 0 ml 120 ml Balance 0 ml 120 ml Assessment & Plan Problem List: (1) ALZHEIMER'S DISEASE WITH LATE ONSET ICD Codes: G30.1 - ALZHEIMER'S DISEASE WITH LATE ONSET (2) DEMENTIA IN OTH DISEASES CLASSD ELSWHR W BEHAVIORAL DISTURB ICD Codes: F02.81 - DEMENTIA IN OTH DISEASES CLASSD ELSWHR W BEHAVIORAL DISTURB Assessment & Plan Estimated LOS: days patient continues demented confused though no behavioral problems at this time, compliant medication Justification for Cont. Inpt. At this time patient will decompensate of placed in a lower level of care Discharge Planning Placement needs to be determined Request HC Surrog/Guard Advoc?: Yes Tino Jean-Baptiste MD Aug 23, 2017 12:48
--- NOTE | 2017-08-23 13:20 | HHI.PR ---
Subjective Remarks in no distress. no pain. denies any new complaints. Objective Vitals Vital Signs Date Time Temp Pulse Resp B/P (MAP) Pulse Ox O2 Delivery O2 Flow Rate FiO2 08/22/17 18:13 98.9 41 16 117/61 (79) 98 I/O 08/22/17 08/22/17 08/22/17 08/23/17 08/23/17 08/23/17 07:00 15:00 23:00 07:00 15:00 23:00 Intake Total 820 ml 482 ml 120 ml Output Total 4 ml Balance 820 ml 478 ml 120 ml Intake Oral 820 ml 482 ml 120 ml Output Urine Total 4 ml # Voids 4 2 # Bowel Movements 0 Result Diagram: 08/19/17 0215 08/20/17 1209 Objective Remarks GENERAL: This is a well-nourished, well-developed patient, in no apparent distress. CARDIOVASCULAR: Regular rate and regular rhythm without murmurs, gallops, or rubs. RESPIRATORY: Clear to auscultation. Breath sounds equal bilaterally. No wheezes , rales, or rhonchi. GASTROINTESTINAL: Abdomen soft, non-tender, nondistended. Normal, active bowel sounds MUSCULOSKELETAL: Extremities without clubbing, cyanosis, or edema. NEURO: Alert & Oriented x4 to person, place, time, situation. Moves all ext x4 Medications and IVs Inpatient Medications Acetaminophen (Tylenol) 650 mg Q4H PRN PO Pain 1-5 or Temp >101F; Start at 14:00 Al Hydrox/Mg Hydrox/Simethicone (Mag-Al Plus Susp Liq) 30 ml Q6H PRN PO DYSPEPSIA; Start 08/19/17 at 14:00 Aspirin (Aspirin Chew) 81 mg DAILY CHEW Last administered on 08/23/17at 09:52; Start 08/20/17 at 09:00 Cholecalciferol (Vitamin D3) 2,000 units DAILY PO Last administered on at 09:52; Start 08/21/17 at 09:00 Dextrose (D50w (Vial) Inj) 50 ml UNSCH PRN IV PUSH HYPOGLYCEMIA-SEE COMMENTS; Start 08/19/17 at 14:45 Donepezil HCl (Aricept) 10 mg DAILY PO Last administered on 08/23/17at 09:00; Start 08/20/17 at 09:00 Gabapentin (Neurontin) 300 mg DAILY PO Last administered on 08/23/17at 09:53; Start 08/20/17 at 09:00 Glucagon (Glucagon Inj) 1 mg UNSCH PRN OTHER HYPOGLYCEMIA-SEE COMMENTS; Start 08/19/17 at 14:45 Insulin Aspart (NovoLOG SUPPLEMENTAL SCALE) 1 ACHS SLIDING SCALE SQ Last administered on 08/22/17at 22:34; Start 08/19/17 at 17:00 Insulin Aspart (NovoLOG INJ) 4 units TIDAC SQ Last administered on 08/23/17at 12 :23; Start 08/19/17 at 17:00 Insulin Detemir (Levemir Inj) 10 units HS SQ Last administered on 08/22/17at 22: 34; Start 08/19/17 at 21:00 Lisinopril (Prinivil) 20 mg DAILY PO Last administered on 08/23/17at 09:53; Start 08/22/17 at 09:00 Lorazepam (Ativan Inj) 2 mg ONCE ONCE IM ; Start 08/19/17 at 02:15; Stop at 02:16; Status DC Magnesium Hydroxide (Milk Of Magnesia Liq) 30 ml DAILY PRN PO CONSTIPATION; Start 08/19/17 at 14:00 Memantine (Namenda) 10 mg DAILY PO Last administered on 08/23/17at 09:53; Start 08/20/17 at 09:00 Nicotine (Habitrol 21 Mg Patch.24 Hr) 1 patch DAILY PRN T-DERMAL nicotine craving; Start 08/19/17 at 15:00 Pravastatin Sodium (Pravachol) 40 mg DAILY PO Last administered on 08/23/17at 09 :53; Start 08/20/17 at 09:00 A/P Problem List: (1) Hyperlipidemia ICD Code: E78.5 - Hyperlipidemia, unspecified (2) Diabetes mellitus ICD Code: E11.9 - Type 2 diabetes mellitus without complications (3) Hypertension ICD Code: I10 - Essential (primary) hypertension (4) Alzheimer's dementia ICD Code: G30.9 - Alzheimer's disease, unspecified; F02.80 - Dementia in other diseases classified elsewhere without behavioral disturbance Assessment and Plan - Alzheimer's dementia with behavioral disturbance -Management per psychiatric team -Continue donepezil 10 mg by mouth daily, Namenda 10 mg daily - Diabetes mellitus - Diabetic nephropathy - A1c 7.5 -Continue gabapentin 300 mg by mouth daily. -Long-acting insulin reduced to 10 units daily at bedtime. Titrate up as needed. Blood sugars with good overall control at present. -Continue sliding scale insulin and pre-meal insulin with aspart. Titrate as needed. - Hypertension - Hyperlipidemia -Blood pressures running low, decreased dose of lisinopril to 20 mg daily with parameters. -Continue statin. -Continue to monitor BP and adjust treatment accordingly - Irregular heart rhythm No history of Atrial fibrillation -Bigeminy and PVCs on EKG. Cardiology consulted. -Obtain magnesium level -Cardiology following, appreciate assistance. Consideration for beta- soco therapy but held secondary to bradycardia. - Vitamin D deficiency -Vitamin D level 20.4 -Started on p.o. vitamin D supplementation daily -Patient will need to follow-up with PCP as outpatient for repeat vitamin D level in 3 months -DVT prophylaxis -Patient is ambulatory Onel Ann MD Aug 23, 2017 13:20
--- NOTE | 2017-08-23 13:54 | PD.TTN ---
Patient Problems 1. Discharge planning 2. Medication compliance 3. Knowledge deficit 4. Lack of coping skills Progress Toward Goals Provider Present: Dr. Manprete Jean-Baptiste Provider Input: 08/22/17 patient is new but appears in need of placement with Dementia Psychiatric Counselors Present: Alice Moeller LCSW Psych Therapist Input: 08/22/17 from weekend counselor: is going to meet with Veronika Krishnan for [facility] placement Group Spec/RT/OT/[place] Present: Jason Godfrey OT Group Spec/RT/OT/[place] Input: 08/22/17 new today Alice Moeller LCSW Aug 23, 2017 13:54
--- NOTE | 2017-08-23 15:05 | PD.CARD.PN ---
Subjective Subjective Remarks alert in nad, assymptomatic Objective Medications GENERAL: SKIN: Warm and dry. HEAD: Normocephalic. EYES: No scleral icterus. No injection or drainage. NECK: Supple, trachea midline. No JVD or lymphadenopathy. CARDIOVASCULAR: Regular rate and rhythm without murmurs, gallops, or rubs. RESPIRATORY: Breath sounds equal bilaterally. No accessory muscle use. GASTROINTESTINAL: Abdomen soft, non-tender, nondistended. MUSCULOSKELETAL: No cyanosis, or edema. BACK: Nontender without obvious deformity. No CVA tenderness. Current Medications Medications (Trade) Dose Ordered Sig/Sujit Route Start Time Stop Time Status Last Admin (Aspirin Chew) 81 mg DAILY CHEW 08/20/17 09:00 08/23/17 09:52 (Neurontin) 300 mg DAILY PO 08/20/17 09:00 08/23/17 09:53 (Pravachol) 40 mg DAILY PO 08/20/17 09:00 08/23/17 09:53 (Tylenol) 650 mg Q4H PRN PO 08/19/17 14:00 (Milk Of Magnesia Liq) 30 ml DAILY PRN PO 08/19/17 14:00 (Mag-Al Plus Susp Liq) 30 ml Q6H PRN PO 08/19/17 14:00 (Habitrol 21 Mg Patch.24 Hr) 1 patch DAILY PRN T-DERMAL 08/19/17 15:00 (D50w (Vial) Inj) 50 ml UNSCH PRN IV PUSH 08/19/17 14:45 (Glucagon Inj) 1 mg UNSCH PRN OTHER 08/19/17 14:45 (NovoLOG SUPPLEMENTAL SCALE) 1 ACHS SLIDING SCALE SQ 08/19/17 17:00 08/22/17 22:34 (NovoLOG INJ) 4 units TIDAC SQ 08/19/17 17:00 08/23/17 12:23 (Aricept) 10 mg DAILY PO 08/20/17 09:00 08/23/17 09:00 (Namenda) 10 mg DAILY PO 08/20/17 09:00 08/23/17 09:53 (Levemir Inj) 10 units HS SQ 08/19/17 21:00 08/22/17 22:34 (Vitamin D3) 2,000 units DAILY PO 08/21/17 09:00 2/20/18 09:52 (Prinivil) 20 mg DAILY PO 08/22/17 09:00 08/23/17 09:53 Vital Signs / I&O Vital Signs Date Time Temp Pulse Resp B/P (MAP) Pulse Ox O2 Delivery O2 Flow Rate FiO2 08/22/17 18:13 98.9 41 16 117/61 (79) 98 I/O 08/22/17 08/22/17 08/22/17 08/23/17 08/23/17 08/23/17 07:00 15:00 23:00 07:00 15:00 23:00 Intake Total 820 ml 482 ml 120 ml Output Total 4 ml Balance 820 ml 478 ml 120 ml Intake Oral 820 ml 482 ml 120 ml Output Urine Total 4 ml # Voids 4 2 # Bowel Movements 0 Physical Exam GENERAL: SKIN: Warm and dry. HEAD: Normocephalic. EYES: No scleral icterus. No injection or drainage. NECK: Supple, trachea midline. No JVD or lymphadenopathy. CARDIOVASCULAR: Regular rate and rhythm without murmurs, gallops, or rubs. RESPIRATORY: Breath sounds equal bilaterally. No accessory muscle use. GASTROINTESTINAL: Abdomen soft, non-tender, nondistended. MUSCULOSKELETAL: No cyanosis, or edema. BACK: Nontender without obvious deformity. No CVA tenderness. Assessment and Plan Problem List: (1) Arrhythmia ICD Codes: I49.9 - Cardiac arrhythmia, unspecified (2) DEMENTIA IN OTH DISEASES CLASSD ELSWHR W BEHAVIORAL DISTURB ICD Codes: F02.81 - DEMENTIA IN OTH DISEASES CLASSD ELSWHR W BEHAVIORAL DISTURB (3) Alzheimer's dementia ICD Codes: G30.9 - Alzheimer's disease, unspecified; F02.80 - Dementia in other diseases classified elsewhere without behavioral disturbance (4) Diabetes mellitus ICD Codes: E11.9 - Type 2 diabetes mellitus without complications Assessment and Plan 1.) Arrythmia - assymptomatic, f/u 2d echo, beta soco held due to bradycardia ; echo to do echo 08/23/17 Alexis Gonzalez MD Aug 23, 2017 15:05
[2017-08-23 18:00] VITALS: BP 111/71; PULSE 65; RESP 16; TEMP 98; O2SAT 100
--- NOTE | 2017-08-23 20:17 | ECHRPT ---
Indication: heart failure CONCLUSIONS The left ventricular systolic function is normal with an estimated ejection fraction in the range of 55-60%. Doppler parameters are consistent with impaired left ventricular relaxtion (grade 1 diastolic dysfun ction). Trace mitral valve regurgitation. There is mild tricuspid valve regurgitation. BP: 106 / 56 HR: 66 Rhythm: Sinus MEASUREMENTS (Male / Female) Normal Values Technical Quality:Fair 2D ECHO LV Diastolic Diameter PLAX 3.6 cm 4.2 - 5.9 / 3.9 - 5.3 cm LV Systolic Diameter PLAX 2.5 cm IVS Diastolic Thickness 1.0 cm 0.6 - 1.0 / 0.6 - 0.9 cm LVPW Diastolic Thickness 1.1 cm 0.6 - 1.0 / 0.6 - 0.9 cm LV Relative Wall Thickness 0.6 RV Internal Dim ED PLAX 3.0 cm LVOT Diameter 2.0 cm LA Systolic Diameter LX 3.1 cm 3.0 - 4.0 / 2.7 - 3.8 cm LV Ejection Fraction MOD 4C 55.1 % LV Cardiac Index MOD 4C 1184.3 cm/minm LV Ejection Fraction 4C AL 55.9 % LV Cardiac Index 4C AL 1249.4 cm/minm M-MODE Aortic Root Diameter MM 3.0 cm LA Systolic Diameter MM 3.6 cm LA Ao Ratio MM 1.2 AV Cusp Separation MM 1.7 cm DOPPLER AV Peak Velocity 85.7 cm/s AV Peak Gradient 2.9 mmHg LVOT Peak Velocity 58.2 cm/s LVOT Peak Gradient 1.4 mmHg AV Area Cont Eq pk 2.1 cm MV Area PHT 2.0 cm Mitral E Point Velocity 51.3 cm/s Mitral A Point Velocity 61.7 cm/s Mitral E to A Ratio 0.8 LV E' Lateral Velocity 6.0 cm/s Mitral E to LV E' Lateral Ratio 8.5 LV E' Septal Velocity 5.9 cm/s Mitral E to LV E' Septal Ratio 8.8 TR Peak Velocity 239.0 cm/s TR Peak Gradient 22.8 mmHg Right Atrial Pressure 10.0 mmHg Pulmonary Artery Systolic Pressu 32.8 mmHg Right Ventricular Systolic Press 32.8 mmHg PV Peak Velocity 111.0 cm/s PV Peak Gradient 4.9 mmHg FINDINGS LEFT VENTRICLE The left ventricular systolic function is normal with an estimated ejection fraction in the range of 55-60%. Normal left ventricular size. Wall thickness is normal. No regional wall motion abnormalities are present. Doppler parameters are consistent with impaired left ventricular relaxtion (grade 1 diastolic dysfun ction). RIGHT VENTRICLE Normal right ventricular size and systolic function. LEFT ATRIUM The left atrial size is mildly dilated. RIGHT ATRIUM The right atrial size is normal. ATRIAL SEPTUM Normal atrial septal thickness AORTA The aortic root and proximal ascending aorta are normal in size on limited imaging. MITRAL VALVE Mild thickening of the mitral valve leaflets. Trace mitral valve regurgitation. Moderate mitral annular calcification. No mitral valve stenosis. AORTIC VALVE Trileaflet aortic valve. Aortic valve sclerosis is present. No aortic valve regurgitation. No aortic valve stenosis. TRICUSPID VALVE Structurally normal tricuspid valve. There is mild tricuspid valve regurgitation. The estimated pulmonary arterial pressure is 32.8 mmHg. PULMONARY VALVE No pulmonary valve regurgitation or stenosis. VESSELS The inferior vena cava was not well visualized. PERICARDIUM No pericardial effusion. Yoav Anthony DO (Electronically Signed) Final Date:23 August 2017 20:16
[2017-08-23] MEDS: INSULIN DETEMIR 100 UNITS/ML VIAL SQ SCH (21:17)
[2017-08-24 05:20] VITALS: BP 124/66; PULSE 69; RESP 17; TEMP 98; O2SAT 97
[2017-08-24] MEDS: INSULIN ASPART SUPPLEMENTAL SCALE SQ SCH ×2 (08:00→11:29)
[2017-08-24] MEDS: DONEPEZIL HCL 5 MG TAB PO SCH (09:00)
[2017-08-24] MEDS: PRAVASTATIN SOD 40 MG TAB PO SCH (09:21)
[2017-08-24] MEDS: LISINOPRIL 20 MG TAB PO SCH (09:21)
[2017-08-24] MEDS: GABAPENTIN 300 MG CAP PO SCH (09:21)
[2017-08-24] MEDS: ASPIRIN 81 MG CHEW TAB CHEW SCH (09:22)
[2017-08-24] MEDS: CHOLECALCIFEROL (VIT D3) 1000 UNIT TAB PO SCH (09:22)
[2017-08-24] MEDS: MEMANTINE HCL 10 MG TAB PO SCH (09:22)
[2017-08-24] MEDS: INSULIN ASPART 1,000 UNITS/10 ML VIAL SQ SCH ×2 (09:29→11:30)
[2017-08-24] MEDS ORDERED: NAME10TA PO (13:04)
[2017-08-24] MEDS ORDERED: LISI-515 PO (13:04)
[2017-08-24] MEDS ORDERED: DONE10TA7 PO (13:04)
[2017-08-24] MEDS ORDERED: NOVOLOGP2 SQ (13:04)
[2017-08-24] MEDS ORDERED: PRAV40TA PO (13:04)
[2017-08-24] MEDS ORDERED: CHOL1000 PO (13:04)
[2017-08-24] MEDS ORDERED: ASPI81CH6 CHEW (13:04)
[2017-08-24] MEDS ORDERED: LEVEMIR SQ (13:04)
[2017-08-24] MEDS ORDERED: GABA300C5 PO (13:04)
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
--- NOTE | 2017-08-24 14:02 | PD.CARD.PN ---
Subjective Subjective Remarks alert in nad, assymptomatic Objective Medications Current Medications Medications (Trade) Dose Ordered Sig/Sujit Route Start Time Stop Time Status Last Admin (Aspirin Chew) 81 mg DAILY CHEW 08/20/17 09:00 08/24/17 09:22 (Neurontin) 300 mg DAILY PO 08/20/17 09:00 08/24/17 09:21 (Pravachol) 40 mg DAILY PO 08/20/17 09:00 08/24/17 09:21 (Tylenol) 650 mg Q4H PRN PO 08/19/17 14:00 (Milk Of Magnesia Liq) 30 ml DAILY PRN PO 08/19/17 14:00 (Mag-Al Plus Susp Liq) 30 ml Q6H PRN PO 08/19/17 14:00 (Habitrol 21 Mg Patch.24 Hr) 1 patch DAILY PRN T-DERMAL 08/19/17 15:00 (D50w (Vial) Inj) 50 ml UNSCH PRN IV PUSH 08/19/17 14:45 (Glucagon Inj) 1 mg UNSCH PRN OTHER 08/19/17 14:45 (NovoLOG SUPPLEMENTAL SCALE) 1 ACHS SLIDING SCALE SQ 08/19/17 17:00 08/24/17 11:29 (NovoLOG INJ) 4 units TIDAC SQ 08/19/17 17:00 08/24/17 11:30 (Aricept) 10 mg DAILY PO 08/20/17 09:00 08/24/17 09:00 (Namenda) 10 mg DAILY PO 08/20/17 09:00 08/24/17 09:22 (Levemir Inj) 10 units HS SQ 08/19/17 21:00 08/23/17 21:17 (Vitamin D3) 2,000 units DAILY PO 08/21/17 09:00 08/24/17 09:22 (Prinivil) 20 mg DAILY PO 08/22/17 09:00 08/24/17 09:21 Vital Signs / I&O Vital Signs Date Time Temp Pulse Resp B/P (MAP) Pulse Ox O2 Delivery O2 Flow Rate FiO2 08/24/17 05:20 98.0 69 17 124/66 (85) 97 08/23/17 18:00 98.0 65 16 111/71 (84) 100 I/O 2/20/18 208/23/17 08/24/17 08/24/17 08/24/17 07:00 15:00 23:00 07:00 15:00 23:00 Intake Total 360 ml 240 ml 360 ml Balance 360 ml 240 ml 360 ml Intake Oral 360 ml 240 ml 360 ml # Voids 4 3 Physical Exam GENERAL: SKIN: Warm and dry. HEAD: Normocephalic. EYES: No scleral icterus. No injection or drainage. NECK: Supple, trachea midline. No JVD or lymphadenopathy. CARDIOVASCULAR: Regular rate and rhythm without murmurs, gallops, or rubs. RESPIRATORY: Breath sounds equal bilaterally. No accessory muscle use. GASTROINTESTINAL: Abdomen soft, non-tender, nondistended. MUSCULOSKELETAL: No cyanosis, or edema. BACK: Nontender without obvious deformity. No CVA tenderness. Assessment and Plan Problem List: (1) Arrhythmia ICD Codes: I49.9 - Cardiac arrhythmia, unspecified (2) DEMENTIA IN OTH DISEASES CLASSD ELSWHR W BEHAVIORAL DISTURB ICD Codes: F02.81 - DEMENTIA IN OTH DISEASES CLASSD ELSWHR W BEHAVIORAL DISTURB (3) Alzheimer's dementia ICD Codes: G30.9 - Alzheimer's disease, unspecified; F02.80 - Dementia in other diseases classified elsewhere without behavioral disturbance (4) Diabetes mellitus ICD Codes: E11.9 - Type 2 diabetes mellitus without complications Assessment and Plan 1.) Arrythmia - assymptomatic, beta soco held due to bradycardia; ef =60%, low risk, rec prn electrolyte repletion Alexis Gonzalez MD Aug 24, 2017 14:02
== END 2017-08-24 16:00 | DRG 57 ==
LOC: NEPD 01:49 → NEDA 13:53 → H250 15:16
PROVIDERS: ADMIT Psychiatry & Neurology Psychiatry; ATTEND Psychiatry & Neurology Psychiatry
DX: G30.1 Alzheimer's disease with late onset (principal); F02.81 Dementia in other diseases classified elsewhere, unspecified severity, with behavioral disturbance; E11.21 Type 2 diabetes mellitus with diabetic nephropathy; Z79.4 Long term (current) use of insulin; I10 Essential (primary) hypertension; E78.5 Hyperlipidemia, unspecified; R00.8 Other abnormalities of heart beat; R00.1 Bradycardia, unspecified; E55.9 Vitamin D deficiency, unspecified; Z85.51 Personal history of malignant neoplasm of bladder
CPT/HCPCS: 80048; 80053; 80061; 80307; 81001; 82306; 82607; 82948; 83036; 83735; 84443; 85025; 93005; 93306; 99285; J1815